=== PATIENT | female | born 1960 | race Caucasian/White ===

== ENCOUNTER 2016-06-20 11:32 | Emergency (ER) | payer MEDICARE ==
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
== END 2016-06-20 13:22 | disposition home or self-care (01) ==
LOC: ER 11:32
DX: S90.111A Contusion of right great toe without damage to nail, initial encounter (principal); W22.8XXA Striking against or struck by other objects, initial encounter
CPT/HCPCS: 99283

== ENCOUNTER 2016-08-18 21:11 | Emergency (ER) | payer SELFPAY ==
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
[2016-08-18] MEDS ORDERED: HYDROMORPHONE HCL 1 MG/ML CPJ IM ONE (22:38)
[2016-08-18] MEDS ORDERED: PROMETHAZINE HCL 25 MG/ML VIAL IM ONE (22:38)
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
== END 2016-08-18 23:45 | disposition home or self-care (01) ==
LOC: ER 21:11
DX: S20.211A Contusion of right front wall of thorax, initial encounter (principal); S30.0XXA Contusion of lower back and pelvis, initial encounter; S10.83XA Contusion of other specified part of neck, initial encounter; S40.011A Contusion of right shoulder, initial encounter; S40.021A Contusion of right upper arm, initial encounter; S80.01XA Contusion of right knee, initial encounter; R51 Headache; R42 Dizziness and giddiness; V03.10XA Pedestrian on foot injured in collision with car, pick-up truck or van in traffic accident, initial encounter; Y92.414 Local residential or business street as the place of occurrence of the external cause
CPT/HCPCS: 99284 ×2; 96372; 72050; 73060; 73564; 72100; 71101; J1170; J2550